=== PATIENT | male | born 1970 | race Two or more races ===

== ENCOUNTER 2025-04-12 23:46 | Emergency (ER) | payer OTHER ==
[~2025-04-12] VITALS: Ht 180.3 cm; Wt 94.3 kg
[2025-04-13] MEDS ORDERED: LOSARTAN POTAS100 MG (00:14)
[2025-04-13] MEDS ORDERED: TRIAMCINOLONE ACETONIDE 40 MG/ML VIAL IM ONE (02:45)
[2025-04-13] MEDS ORDERED: KETOROLAC TROMETHAMINE 60 MG VIAL IM ONE ×2 (02:45→02:46)
[2025-04-13] MEDS ORDERED: TRIAMCINOLONE ACETONIDE 40 MG/ML VIAL ONE (02:46)
[2025-04-13] MEDS ORDERED: DICLOFENAC SODI75 MG PO (02:47)
== END 2025-04-13 03:05 | disposition home or self-care (01) ==
LOC: ER 23:46
DX: S01.81XA Laceration without foreign body of other part of head, initial encounter (principal); Y08.89XA Assault by other specified means, initial encounter; Y93.89 Activity, other specified; Y92.89 Other specified places as the place of occurrence of the external cause; Y99.8 Other external cause status; I10 Essential (primary) hypertension